=== PATIENT | female | born 1985 | race African-American/Black ===

== ENCOUNTER 2017-03-24 03:05 | Emergency (ER) | payer OTHER ==
[2017-03-24 03:12] VITALS: BP 138/76; BMI 37.2
--- NOTE | 2017-03-24 03:36 | DR.GENAD ---
HPI - PCP Primary Care Physician: edin - Complaint/Symptoms Chief Complaint Doctors Comments: History as stated. Chief Complaint:: nausea and dizziness since 2200 on 03/23/17 - Nurses notes reviewed Nurses Notes Review: Yes - Source History Provided: Patient - Mode of Arrival Mode of Arrival: Ambulatory - Timing Onset of Chief Complaint: 03/23/17 PMH - PMH Past Medical History: No Past Surgical History: No Past Surgical History Comment: hernia - Family History History of Family Medical Conditions: Yes Family Medical History: Diabetes Mellitus, Cancer, Hypertension - Social History Does any household member use tobacco: No Alcohol Use: None Do you use any recreational Drugs:: No Lives With: Family Lives Where: Home - infectious screening In the last 2 months have you had wt loss of >10#?: NO Have you had fever, night sweats or hemotysis?: No Have you traveled outside the country in the last 6 months?: No Isolation: Standard ROS - Review of Systems Eyes: No Symptoms Reported ENTM: No Symptoms Reported Respiratoy: No Symptoms Reported Cardiovascular: No Symptoms Reported Gastrointestinal/Abdominal: Nausea, Vomiting Genitourinary: No Symptoms Reported Neurological: No Symptoms Reported Musculoskeletal: No Symptoms Reported Integumentary: No Symptoms Reported Hematologic/Lymphatic: No Symptoms Reported Endocrine: No Symptoms Reported Psychiatric: No Symptoms Reported All Other Systems: Reviewed and Negative PE - Vital Signs Vitals: Temperature 98.6 F Pulse Rate 68 Respiratory Rate 18 Blood Pressure 138/76 O2 Sat by Pulse Oximetry 99 - General Limitations: No Limitations General Appearance: Alert, In No Apparent Distress - Head Head Exam: Normal Inspection, Atraumatic - Eyes Eye exam: Normal Appearance, PERRL, EOMI - ENT ENT Exam: Normal Exam External Ear Exam: Normal External Inspection TM/Canal Exam: Bilateral Normal Nose Exam: Normal Nose Exam Mouth Exam: Normal Inspection Throat Exam: Normal Inspection - Neck Neck Exam: Normal Inspection - Chest Chest Inspection: Normal Inspection - Respiratory Respiratory Exam: Normal Lung Sounds Bilat Respiratory Exam: Bilateral Clear to Auscultation - Abdominal Exam Abdominal Exam: Normal Inspection Abdominal Tenderness: negative: RUQ, RLQ, LUQ, LLQ, Epigastrium, Suprapubic, Diffuse, Mild, Moderate, Severe, Other - Back Back Exam: Normal Inspection - Neurologic Neurological Exam: Alert, Oriented X3, CN II-XII Intact - Psychiatric Psychiatric Exam: Normal Affect, Normal Mood - Skin Skin Exam: Warm, Dry, Intact ROR - Labs Reviewed Laboratory Results Reviewed?: Yes (strep positive) Result Diagrams: 03/24/17 03:40 03/24/17 03:40 Laboratory: WBC 6.3 X10^3/uL (3.6-10.0) 03/24/17 03:40 RBC 4.59 X10^6/uL (3.5-5.4) 03/24/17 03:40 Hgb 12.4 g/dL (12.0-16.0) 03/24/17 03:40 Hct 37.0 % (36.0-47.0) 03/24/17 03:40 MCV 80.6 fL (80.0-100.0) 03/24/17 03:40 MCH 26.9 pg (27.0-34.0) L 03/24/17 03:40 MCHC 33.4 g/dL (33.0-35.0) 03/24/17 03:40 RDW 12.7 % (11.6-16.5) 03/24/17 03:40 Plt Count 216 X10^3/uL (150.0-450.0) 03/24/17 03:40 MPV 8.2 fL (7.4-11.0) 03/24/17 03:40 Neut % 43.7 % (42.0-75.0) 03/24/17 03:40 Lymph % 47.0 % (21.0-51.0) 03/24/17 03:40 Shoshone % 5.3 % (0.0-13.0) 03/24/17 03:40 Eos % 3.3 % (0.9-2.9) H 03/24/17 03:40 Baso % 0.7 % (0.2-1.0) 03/24/17 03:40 Neut # 2.8 x10^3/uL (2.2-4.8) 03/24/17 03:40 Lymph # 3.0 X10^3/uL (1.3-2.9) H 03/24/17 03:40 [place]oshone # 0.3 x10^3/uL (0.3-0.8) 03/24/17 03:40 Eos # 0.2 x10^3/uL (0.0-0.2) 03/24/17 03:40 Baso # 0.0 X10^3/uL (0.0-0.1) 03/24/17 03:40 Absolute Nucleated RBC 0.0 /100WBC 03/24/17 03:40 Sodium 140 mmol/L (136-145) 03/24/17 03:40 Corrected Sodium 141 mmol/L (136-145) 03/24/17 03:40 Potassium 3.5 mmol/L (3.5-5.1) 03/24/17 03:40 Chloride 105 mmol/L (98-107) 03/24/17 03:40 Carbon Dioxide 25.1 mmol/L (21-32) 03/24/17 03:40 BUN 10 mg/dL (7-18) 03/24/17 03:40 Creatinine 0.77 mg/dL (0.55-1.02) 03/24/17 03:40 Est GFR (MDRD) Af Amer > 60 (>60) 03/24/17 03:40 Est GFR (MDRD) Non-Af > 60 (>60) 03/24/17 03:40 Glucose 122 mg/dL (65-99) H 03/24/17 03:40 Calcium 8.6 mg/dL (8.5-10.1) 03/24/17 03:40 Corrected Calcium TNP 03/24/17 03:40 Total Bilirubin 0.40 mg/dL (0.2-1.0) 03/24/17 03:40 AST 12 Units/L (15-37) L 03/24/17 03:40 ALT 19 Units/L (12-78) 03/24/17 03:40 Alkaline Phosphatase 49 Units/L (46-116) 03/24/17 03:40 Total Protein 6.9 g/dL (6.4-8.2) 03/24/17 03:40 Albumin 3.4 g/dL (3.4-5.0) 03/24/17 03:40 Globulin 3.5 g/dL (2.5-4.5) 03/24/17 03:40 Albumin/Globulin Ratio 1.0 Ratio (1.1-2.1) L 03/24/17 03:40 Streptococcus Screen Positive (NEGATIVE) A 03/24/17 03:51 - Diagnosis Discharge Problem: Strep pharyngitis - Discharge Plan Condition: Stable - Follow ups/Referrals Follow ups/Referrals: Prince Bolden [Primary Care Provider] - 3 days - Instructions
[2017-03-24] MEDS ORDERED: NS 1000 ML 1,000 ML IV ONE (03:37)
[2017-03-24] MEDS ORDERED: NS 1000 ML 1,000 ML ONE (03:38)
[2017-03-24] MEDS ORDERED: ZOFRAN INJ 4 MG VIAL IVP ONE (03:39)
[2017-03-24] MEDS ORDERED: ZOFRAN INJ 4 MG VIAL ONE (03:40)
[2017-03-24 03:57] LABS: BASOPHILS % (AUTO) 0.7 % (0.2-1.0); EOSINOPHILS # (AUTO) 0.2 x10^3/uL (0.0-0.2); EOSINOPHILS % (AUTO) 3.3 % (0.9-2.9); HEMOGLOBIN 12.4 g/dL (12.0-16.0); MEAN CORPUSCULAR HEMOGLOBIN 26.9 pg (27.0-34.0); MEAN CORPUSCULAR HGB CONC 33.4 g/dL (33.0-35.0); MEAN CORPUSCULAR VOLUME 80.6 fL (80.0-100.0); MEAN PLATELET VOLUME 8.2 fL (7.4-11.0); MONOCYTES # (AUTO) 0.3 x10^3/uL (0.3-0.8); MONOCYTES % (AUTO) 5.3 % (0.0-13.0); NEUTROPHILS # (AUTO) 2.8 x10^3/uL (2.2-4.8); NEUTROPHILS % (AUTO) 43.7 % (42.0-75.0); PLATELET COUNT 216 X10^3/uL (150.0-450.0); RED BLOOD COUNT 4.59 X10^6/uL (3.5-5.4); RED CELL DISTRIBUTION WIDTH 12.7 % (11.6-16.5); WHITE BLOOD COUNT 6.3 X10^3/uL (3.6-10.0)
[2017-03-24 04:06] LABS: ALANINE AMINOTRANSFERASE 19 Units/L (12-78); ALBUMIN 3.4 g/dL (3.4-5.0); ALKALINE PHOSPHATASE 49 Units/L (46-116); ASPARTATE AMINO TRANSFERASE 12 Units/L (15-37); BLOOD UREA NITROGEN 10 mg/dL (7-18); CALCIUM 8.6 mg/dL (8.5-10.1); CARBON DIOXIDE 25.1 mmol/L (21-32); CHLORIDE 105 mmol/L (98-107); COR NA(FOR HYPERGLY) 141 mmol/L (136-145); CREATININE 0.77 mg/dL (0.55-1.02); GLUCOSE 122 mg/dL (65-99); SODIUM 140 mmol/L (136-145); TOTAL PROTEIN 6.9 g/dL (6.4-8.2); eGFR BLACK RACES > 60 (>60); eGFR NON BLACK RACES > 60 (>60)
[2017-03-24 04:12] LABS: SERUM PREGNANCY TEST, QUAL NEGATIVE <10 mIU/mL
--- NOTE | 2017-03-24 04:29 | RAD ---
EXAM: Chest X-ray INDICATION: Dizziness COMPARISION: No prior TECHNIQUE: AP, single view FINDINGS: The lungs are clear in the lung volumes are within normal limits. No pleural effusion or pneumothora x. The cardiac silhouette and mediastinum are normal. The regional skeleton is intact. IMPRESSION: Normal Chest X-Ray Reported By:
== END 2017-03-24 04:49 | disposition home or self-care (01) ==
LOC: ER 03:05
DX: J02.0 Streptococcal pharyngitis (principal)
CPT/HCPCS: 36415; 71010; 80053; 84703; 85025; 87880; 96365; 96367; 96374; 99283; A4222; J2405

== ENCOUNTER → 2017-10-01 | Outpatient (CLI) | payer OTHER ==
--- NOTE | 2017-10-01 16:26 | US ---
Examination: Bilateral diagnostic mammogram and right breast ultrasound. Clinical history: Palpable area of concern at the 6 o'clock position in the right breast. Technique: Multiple digital images of both breasts were obtained. Targeted right breast ultrasound wa s also obtained evaluating the area of palpable concern at the 6 o'clock position. Comparison: None available. Baseline mammogram. Findings: The breasts are composed of scattered fibroglandular densities. Benign-appearing calcifications are n oted in the breasts bilaterally. No mammographic abnormality is evident in the area of palpable concern at the 6 o'clock position in t he right breast. No suspicious mass, area of architectural distortion or suspicious cluster of microcalcifications is noted. Targeted right breast ultrasound evaluating the area of palpable concern at the 6 o'clock position re veals a tiny 0.5 x 0.2 cm hypoechoic area seen just deep to the skin with an apparent tiny dermal sin us extending into the skin. Findings probably represent a tiny sebaceous cyst. The study was read rem otely and clinical correlation is recommended. Impression: 1. Probable tiny sebaceous cyst at the 6 o'clock position in the right breast, as described above. No mammographic or sonographic evidence of malignancy. BI-RADS category 2-benign findings. Recommend clinical management, with routine annual screening mammography to start at 40 years of age, or earlier, if clinically indicated. Diagnostic CAD was utilized and reviewed. * 0 (ZERO) - ASSESSMENT INCOMPLETE; ADDITIONAL IMAGING IS NEEDED. * 0C - ASSESSMENT INCOMPLETE, NEEDS ADDITIONAL IMAGING EVALUATION AND/OR PRIOR MAMMOGRAMS FOR COMPARI SON. * 1/1 (ONE) - NEGATIVE. * 2/II (TWO) - BENIGN FINDINGS. * 3/III (THREE) - PROBABLY BENIGN FINDING; SHORT INTERVAL FOLLOW-UP SUGGESTED. * 4/IV (FOUR) - SUSPICIOUS ABNORMALITY; BIOPSY SHOULD BE CONSIDERED. * 5/V - HIGHLY SUSPICIOUS OF MALIGNANCY; BIOPSY SHOULD BE PERFORMED. * 6/IV - KNOWN BIOPSY PROVEN MALIGNANCY-APPROPRIATE ACTION SHOULD BE TAKEN. A NEGATIVE X-RAY REPORT SHOULD NOT DELAY BIOPSY IF A DOMINANT OR CLINICALLY SUSPICIOUS MASS IS PRESENT; 4 TO 8 PERCENT OF CANCERS ARE NOT IDENTIFIED BY X-RAY. A NEGATIVE REPORT MAY REINFORCE THE CLINICAL IMPRESSION. ADENOSIS AND DENSE BREASTS MAY OBSCURE AN UNDERLYING NEOPLASM. Reported By:
== END ==
LOC: RAD 13:33
PROVIDERS: ATTEND Internal Medicine
DX: N64.59 Other signs and symptoms in breast (principal); R92.8 Other abnormal and inconclusive findings on diagnostic imaging of breast
CPT/HCPCS: 76642; 77066